=== PATIENT | female | born 1970 ===

== ENCOUNTER 2017-01-07 12:58 | Emergency (ER) | payer SELFPAY ==
[2017-01-07] MEDS ORDERED: IOPAMIDOL 370 (76%) IV.SOLN 150 ML IV ONE (12:59)
[2017-01-07] MEDS ORDERED: LACTATED RINGERS 1,000 ML ONE (13:51)
--- NOTE | 2017-01-07 14:30 | CT ---
HEAD W/O CON History: Right-sided weakness since 11:00 AM yesterday. Comparison: 10/10/2011. Procedure: 1 mm axial images were obtained through the head from the vertex to the base of the skull without intravenous contrast. Stacked reconstructed 5 mm images were then obtained in the axial, coronal and sagittal planes. Findings: The lateral ventricles are of normal size and shape without evidence of hydrocephalus. No evidence of midline shift is seen. No mass or mass-effect is observed. No evidence of intra- or extra-axial fluid collections or hemorrhage is identified. The escalante/white differentiation is within expected. The basilar cisterns remain uneffaced. The posterior fossa structures are unremarkable. No acute osseous abnormalities are identified. Impression: 1. A negative unenhanced CT scan of the brain.
--- NOTE | 2017-01-07 14:42 | CT ---
CTA HEAD W/ POST PROCESS History: Right-sided weakness since yesterday. Comparison: None. Procedure: 1 mm axial images were obtained through the head following the administration of 80cc's of Isovue-370 intravenous contrast. Stacked reconstructed 3 mm images were then photographed in the axial, coronal and sagittal planes. 3-D reconstructed MIP images were also performed on the scanner workstation. Findings: Images demonstrate a normal appearance of the visualized orbits. No posterior pharyngeal soft tissue abnormalities are seen. There is a normal course and caliber of the intracranial carotid arteries. Note is made of a focal aneurysm involving the supraclinoid aspect of the right internal carotid artery extending lateral on axial image #114 measuring 3.9 x 3.4 x 4.2 mm in size. The middle and anterior cerebral branches appear to be appropriate. There is no pruning of the distal middle cerebral artery branches identified. The left vertebral artery appears to be dominant. Both vertebral arteries remain patent. The basilar artery is of normal caliber. The posterior cerebral vessels are unremarkable. Impression: 1. A 4.2 x 3.9 x 3.4 cm focal aneurysm extending lateral to the supraclinoid portion of the right internal carotid artery. 2. No focal stenosis visualized. 3. A dominant left vertebral artery. 4. Minimal sphenoid sinus disease.
[2017-01-07 14:45] LABS: ALB/GLOB RATIO 1.5 (>1.0); ALBUMIN 4.6 gm/dL (3.5-5.7); CALCIUM 9.4 mg/dL (8.6-10.3)
--- NOTE | 2017-01-07 14:47 | CT ---
CTA CAROTID W/ POST PROCESS History: Right-sided weakness since 11:00 AM yesterday. Comparison: None. Procedure: 1 mm axial images were obtained through the neck following the administration of 80cc's of Isovue-370 intravenous contrast. Stacked reconstructed 3 mm images were then photographed in the axial, coronal and sagittal planes. 3-D reconstructed MIP images were also performed on the scanner workstation. Findings: Images demonstrate a minimal amount of sphenoid sinus disease. No enlarged cervical chain adenopathy is visualized. The thyroid gland is appropriate. The visualized mediastinum is normal. No significant adenopathy is visualized. The lung parenchyma appears to be appropriate. There is little significant atherosclerotic disease identified involving the aorta and great vessel branches. The left subclavian artery appears to be widely patent with no significant disease or stenosis identified. The left common carotid artery demonstrates a normal course and caliber. The internal and external carotid branches are widely patent. The innominate artery and right subclavian artery appear to be appropriate. The right common carotid artery also demonstrates a normal course and caliber. The internal and external carotid branches are appropriate. The distal aspects of the internal carotid vessels are widely patent. The left vertebral artery is dominant. Both vertebral arteries appear to be patent with no significant stenosis suggested. Impression: 1. Little significant atherosclerotic disease identified. No stenosis is visualized. 2. A left dominant vertebral artery. The findings were discussed with Dr. Storey at 1443 hours.
[2017-01-07 14:51] LABS: ABSOLUTE NEUTROPHIL COUNT 5.4 K/mm3 (1.8-7.7); BASO # 0.1 K/mm3 (0.0-0.2); BASO % 0.5 % (0.2-1.0); EOS # 0.2 (0.0-0.5); EOS % 1.9 % (0.9-2.9); HEMATOCRIT 42.3 % (37.0-47.0); HEMOGLOBIN 14.5 gm/l (12.0-16.0); IMM NEUT% 0.1 % (0-1); LYMPH # 3.3 (1.0-4.8); LYMPH % 35.4 % (15-45); MEAN CELL VOLUME 85.8 fl (81.0-99.0); MEAN CORPUSCULAR HEMOGLOBIN 29.4 pg (27.0-31.0); MEAN CORPUSCULAR HGB CONC 34.3 g/dl (33.0-37.0); MEAN PLATELET VOLUME 10.3 fl (7.4-10.4); MONO # 0.5 (0.0-0.8); NEUT % 57.1 % (43-75); PLATELET COUNT 267 K/mm3 (130-400); RED CELL DISTRIBUTION WIDTH 12.5 % (11.5-14.5)
[2017-01-07 15:05] LABS: INR 0.92; PROTHROMBIN TIME 9.7 SECONDS (9.3-11.4)
[2017-01-07 15:15] LABS: URINE BILIRUBIN NEGATIVE (NEGATIVE); URINE BLOOD NEGATIVE (NEGATIVE); URINE GLUCOSE (UA) 3+ (NEGATIVE); URINE LEUKOCYTE ESTERASE TRACE (NEGATIVE); URINE NITRITE NEGATIVE (NEGATIVE); URINE PROTEIN NEGATIVE (NEGATIVE); URINE UROBILINOGEN NORMAL (0-1 mg/dl)
[2017-01-07 15:35] LABS: URINE COLOR YELLOW
[2017-01-07 15:36] LABS: URINE APPEARANCE CLEAR
[2017-01-07 15:38] LABS: URINE EPITHELIAL CELLS 0-1 /hpf; URINE RBC 0-1 /hpf; URINE WBC 0-1 /hpf
[2017-01-07 15:39] LABS: URINE BACTERIA 1+
== END 2017-01-07 17:39 | disposition short-term general hospital (02) ==
LOC: ED 12:58
DX: G81.91 Hemiplegia, unspecified affecting right dominant side (principal); R53.1 Weakness; E78.5 Hyperlipidemia, unspecified; I10 Essential (primary) hypertension; E66.9 Obesity, unspecified; E10.9 Type 1 diabetes mellitus without complications; Z79.4 Long term (current) use of insulin
CPT/HCPCS: 85025; 87086; 80053; 85610; 81001; 70450; 70496; 70498; 99285 ×2; 96360; 96361; 82962; J7120; Q9967